=== PATIENT | male | born 1990 | race Hispanic/Latino ===

== ENCOUNTER 2018-06-30 10:11 | Day surgery (SDC) | payer MEDICARE, OTHER ==
[2018-06-30 11:05] VITALS: BMI 30.2
[2018-06-30] MEDS ORDERED: Propofol 10 mg/ml Inj (20 ML) ONE (14:12)
[2018-06-30] MEDS ORDERED: Succinylcholine 200 mg/10 ml Inj IV ONE (14:12)
[2018-06-30] MEDS ORDERED: Rocuronium 10 mg/ml (5 ml) ONE (14:12)
[2018-06-30] MEDS ORDERED: Midazolam 2 MG/2 ML VIAL ONE (14:12)
[2018-06-30] MEDS ORDERED: Bupivacaine 0.5% Inj(30mL) ONE (14:27)
[2018-06-30] MEDS ORDERED: Iohexol 240 (50 ml) ONE (14:27)
[2018-06-30] MEDS ORDERED: Desflurane Inhalation Anesthetic Liq (240 ml) ONE (14:37)
[2018-06-30] MEDS ORDERED: Neostigmine Methylsulfate 3mg/3ml Syringe IV ONE (14:57)
--- NOTE | 2018-06-30 16:51 | PCM.SURG1 ---
Surgeon's Initial Post Op Note - Surgeon's Notes Surgeon: Dr. Shoemaker Go Go Dancer: Dr. Pierce PGY3, Dr. Massey PGY4 Type of Anesthesia: General Endo Anesthesia Administered By: Dr. Champagne Pre-Operative Diagnosis: Biliary Colic Operative Findings: Intrahepatic Gallbladder Post-Operative Diagnosis: Biliary Colic Operation Performed: Laparoscopic Cholecystectomy, with intraoperative cholangiogram Specimen/Specimens Removed: Gallbladder Estimated Blood Loss: EBL {In ML}: 50 Blood Products Given: N/A Drains Used: No Drains Post-Op Condition: Good Date of Surgery/Procedure: 06/30/18 Time of Surgery/Procedure: 16:51
[2018-06-30] MEDS ORDERED: Oxycodone/Acetaminophen 5/325 mg Tab PO PRN (16:53)
[2018-06-30] MEDS ORDERED: HYDROmorphone 0.5 mg/0.5 ml ISec IVP PRN (17:08)
[2018-06-30] MEDS ORDERED: Lactated Ringer's 1,000 ML IV SCH (17:15)
[2018-06-30] MEDS ORDERED: Acetaminophen 650mg/20.3ml solution UD PO STA (18:19)
[2018-06-30 18:22] VITALS: RESP 18
[2018-06-30] MEDS ORDERED: Acetaminophen 650mg/20.3ml solution UD PO PRN (18:40)
[2018-06-30 20:50] VITALS: BP 117/77; PULSE 104; TEMP 97.8; O2SAT 97
--- NOTE | 2018-06-30 22:40 | CP.PCM.PCO ---
Physician Communication Note - Physician Communication Note Physician Communication Note: Pt needs overnight observation-IV fluids/analgesics
[2018-07-01 07:21] LABS: BASO # 0.02 K/mm3 (0.0-2.0); BASO % 0.3 % (0.0-3.0); EOS % 0.3 % (1.5-5.0); GRAN # 6.25 (1.4-6.5); GRAN % 78.8 % (50.0-68.0); HEMOGLOBIN 15.8 g/dL (14.0-18.0); LYMPH # 1.2 (1.2-3.4); LYMPH % 15.3 % (22.0-35.0); MEAN CELL VOLUME 97.8 fl (80.0-105.0); MEAN CORPUSCULAR HEMOGLOBIN 34.2 pg (25.0-35.0); MEAN PLATELET VOLUME 9.5 fl (7.0-11.0); MONO # 0.4 (0.1-0.6); MONO % 5.3 % (1.0-6.0); RBC 4.62 10^6/uL (3.5-6.1); RED CELL DISTRIBUTION WIDTH 13.2 % (11.5-14.5); WHITE BLOOD COUNT 7.9 10^3/ul (4.5-11.0)
[2018-07-01 07:36] LABS: ALBUMIN 3.3 g/dL (3.0-4.8); ALT/SGPT 140 U/L (7-56); AST/SGOT 68 U/L (17-59); BLOOD UREA NITROGEN 8 mg/dL (7-21); CALCIUM 8.6 mg/dL (8.4-10.5); GFR NON-AFRICAN AMERICAN > 60
[2018-07-01] MEDS ORDERED: Levothyroxine 175 MCG TAB PO SCH (10:00)
[2018-07-01 12:32] LABS: HEPATITIS B SURFACE AG Negative (NEGATIVE)
[2018-07-01 12:38] LABS: HEPATITIS B CORE AB NEGATIVE (NEGATIVE)
[2018-07-01 12:50] LABS: HEPATITIS C ANTIBODY NEGATIVE (NEGATIVE)
[2018-07-01 13:29] LABS: HEPATITIS A IGM NEGATIVE (NEGATIVE)
--- NOTE | 2018-07-01 13:37 | RAD ---
Date of service: 06/30/2018 PROCEDURE: Intraoperative cholangiogram HISTORY: ? CBD OBST COMPARISON: None TECHNIQUE: Standard protocol for this study/examination. FINDINGS: Total fluoroscopic time (continuous mode) utilized during the procedure 9.2 (seconds). Total exam DLP: 0.17 (mGy). IMPRESSION: Less than 1 hr fluoroscopic assistance provided during performance of the procedure.
--- NOTE | 2018-07-06 11:28 | OP ---
PROCEDURE DATE: 06/30/2018 SURGEON: Fabián Shoemaker MD. BRANCH ACCOUNT MANAGER: Kayode Pierce DO, PGY-3. SECOND BRANCH ACCOUNT MANAGER: Denise Massey DO, PGY-4. INSULATION INSTALLER: Dr. Champagne. ANESTHESIA: General endotracheal - Marcaine 0.5 - 18 mL. PREOPERATIVE DIAGNOSES: 1. Chronic cholecystitis - cholelithiasis. 2. Down syndrome. POSTOPERATIVE DIAGNOSES: 1. Chronic cholecystitis - cholelithiasis. 2. Down syndrome. PROCEDURE: A laparoscopic cholecystectomy with intraoperative cholangiography. OPERATIVE INDICATIONS: The patient is a 28-year-old male with Down syndrome, who has been referred by his private physician, Dr. Kathy Levin for elevated liver transaminases and ultrasound confirmation of cholelithiasis. The patient is seen with his mother on 2 occasions and he is unable to describe significant gallbladder attacks. However, there is a significant family history of this noted. The patient's mother describes being told that he should have his gallbladder removed by their primary care physician before things get worse and she has been counseled and advised that this procedure can be done on the same-day basis and that it will be done laparoscopically. Risks, benefits, alternatives and their anticipated outcomes were fully described and both mother and the patient signed the informed consent and are prepared for preadmission testing. OPERATIVE NOTE: The patient was brought to the operating room from the same-day holding area where he has been seen and identified by his wristband. He has been cleared by anesthesia and by his private physician. He undergoes time-out procedure and is then placed on the operative table in a supine manner. Following the induction of general anesthesia and the insertion of an endotracheal tube, sequential compression devices are placed on his lower extremities and the abdomen electrically clipped and prepped with Hibiclens, chlorhexidine preparation and the patient is aseptically draped. The umbilicus is elevated on towel clips. The supraumbilical area is infiltrated with the long-acting bupivacaine and incision made and a Veress needle inserted into the peritoneal cavity and the abdomen insufflated with carbon dioxide gas to 14 mmHg pressure. The needle is removed and a 10 mm blunt port is inserted with direct vision utilizing the Storz laparoscope through the trocar. Once the peritoneum is entered, the abdomen is explored using the operating laparoscope and under direct vision, a 5-mm port is placed in the right subxiphoid location and in the right upper quadrant near the level of the umbilicus, two 5 mm ports are also placed under direct vision. The patient is now rotated to the left in a reverse Trendelenburg position and the gallbladder is visualized and freed. There are some adhesions to the gallbladder demonstrating previous inflammation and is easily freed and the gallbladder is examined and found to be predominantly intrahepatic and covered with liver edges both medially and laterally. The patient is almost 200 pounds and the gallbladder is markedly small. The fundus of the gallbladder is grasped with a Prestige clamp as is the area just above the cystic duct and this is carefully freed and skeletonized demonstrating the cystic duct. The cystic duct is doubly Hemoclipped, incised and intraoperative cholangiography performed demonstrating free flow of contrast into the common duct and from there into the duodenum without evidence of obstruction or stone. Of significant note is the fact that the cystic duct enters the right hepatic duct and not the common duct. Catheter is removed. The cystic duct is doubly Hemoclipped and transected and the cystic artery is dissected free, doubly Hemoclipped and also transected and the gallbladder removed from the liver bed in a prograde fashion using electrocoagulation cautery. There is a leakage of bile into the abdominal cavity and this is grasped with the Prestige clamp and the gallbladder is now removed from the top of the gallbladder down in a retrograde manner. Once the gallbladder is completely free and hemostasis is confirmed by cautery, it is placed in an EndoCatch and brought out through the midline port site. The port is now returned to its normal position and the right upper quadrant of the abdomen is lavaged with multi liters of normal saline solution until the return is clear. Hemostasis is confirmed at this point. Significant concern preoperatively for the elevated transaminases is now explained by the size of the extremely small stones, which presumptively are passing through the cystic duct into the common duct and creating elevated liver transaminases on an intermittent basis. The liver itself appears totally normal and biopsy is decided to be not necessary at this time. Careful examination for other small stones that may have escaped or fallen into the abdomen failed to reveal any further and the ports are removed and the midline umbilical incision is closed with interrupted 2-0 Polysorb suture. The skin is closed with 4-0 Biosyn suture and cyanoacrylate glue. The patient is awakened, extubated and transported to the recovery room in a satisfactory condition. Sponge, instrument and suture count were verified as correct at the end of the procedure. Estimated blood loss during this procedure was less than 30 mL of blood. This dictation will be electronically signed without being read. Fabián Shoemaker MD
== END 2018-07-01 06:55 | disposition home or self-care (01) ==
LOC: SDS 10:11 → 5RSO 19:52 → SDS 07-01 06:55
PROVIDERS: ATTEND Surgery
DX: K80.10 Calculus of gallbladder with chronic cholecystitis without obstruction (principal); Q90.9 Down syndrome, unspecified
CPT/HCPCS: 36415 ×2; 47563; 74300; 80053; 80074; 85025; 86850; 86900; 87075; 88304; J0330; J1170; J2001; J2250; J2405; J2704; J2710; J3010; J7120 ×2; Q9966

== ENCOUNTER 2018-10-24 07:03 | Outpatient (CLI) | payer MEDICARE, OTHER | END 2018-10-24 07:04 | disposition home or self-care (01) | LOC: LAB 07:03 ==

== ENCOUNTER 2018-11-14 08:27 | Outpatient (CLI) | payer MEDICARE, OTHER | END 2018-11-14 08:28 | disposition home or self-care (01) | LOC: RAD 08:27 ==

== ENCOUNTER 2018-12-21 07:00 | Outpatient (CLI) | payer MEDICARE, OTHER | END 2018-12-21 07:01 | disposition home or self-care (01) | LOC: LAB 07:00 ==

== ENCOUNTER 2018-12-29 05:40 | Outpatient (CLI) | payer MEDICARE, OTHER | END 2018-12-29 05:41 | disposition home or self-care (01) | LOC: LAB 05:40 ==